=== PATIENT | female | born 1950 | race Two or more races ===

== ENCOUNTER 2018-07-14 21:22 | Inpatient (IN) | payer OTHER ==
[~2018-07-14] VITALS: Ht 160 cm; Wt 98.4 kg
[2018-07-14] MEDS ORDERED: ATROPINE SULF 1 MG/10ml SYR ONE (22:16)
[2018-07-14] MEDS ORDERED: ATROPINE SULF 1 MG/10ml SYR IV ONE ×2 (22:30→22:45)
[2018-07-14 22:32] LABS: Basophils # (auto) 0 uL; Basophils % (auto) 0.6 % (0.0-2.0); Eosinophils # (auto) 0.2 uL; Eosinophils % (auto) 2.4 % (0.0-7.0); Hematocrit 39.4 % (36.0-46.0); Hemoglobin 12.8 g/dL (12.2-16.2); Lymphocytes # (auto) 2.4 uL; Lymphocytes % (auto) 37.1 % (10.0-50.0); Mean Corpuscular Hemoglobin 31.7 pg (28.0-32.0); Mean Corpuscular Hgb Conc. 32.4 g/dL (32.0-36.0); Mean Corpuscular Volume 97.9 fL (80.0-100.0); Monocytes # (auto) 0.7 uL; Monocytes % (auto) 11.4 % (0.0-12.0); Neutrophils # (auto) 3.1 uL; Neutrophils % (auto) 48.5 % (37.0-80.0); Nucleated Red Blood Cells % 0.1 %; Platelet Count (auto) 207 10^3/uL (140-450); Red Blood Cells 4.03 10^6/uL (4.0-5.20); Red Cell Distribution Width 14.5 % (11.8-14.3); White Blood Cell 6.4 10^3/uL (4.4-10.8)
[2018-07-14 22:39] LABS: INR 1.03 (0.9-1.15); Partial Thromboplastin Time 25.8 sec (23.78-33.04)
[2018-07-14] MEDS ORDERED: SODIUM CHLORIDE 0.9% 1,000 ML IV ONE (22:45)
[2018-07-14] MEDS ORDERED: InsuLIN REG 1unit/0.01ml Soln (100units/ml) IV ONE (22:45)
[2018-07-14 22:50] LABS: Potassium 3.5 mmol/L (3.5-5.1)
[2018-07-14 22:54] LABS: Albumin 3.4 g/dL (3.4-5.0); BUN/Creatinine Ratio 29.6; Calcium 8.4 mg/dL (8.5-10.1); Magnesium 1.7 mg/dL (1.6-2.6)
[2018-07-14 23:00] LABS: Bilirubin, Total 0.4 mg/dL (0.2-1.0); Total Protein 7.1 g/dL (6.4-8.2)
[2018-07-15] VITALS (37 sets, daily range): BP systolic 86–167; BP diastolic 34–87
[2018-07-15] MEDS ORDERED: ALBUTEROL SULF 2.5 MG/0.5ML(0.5%) NEB SOLN NEB ONE (01:45)
[2018-07-15] MEDS ORDERED: ALBUTEROL SULF 2.5 MG/0.5ML(0.5%) NEB SOLN ONE (01:46)
[2018-07-15] MEDS ORDERED: DOPamine 1600MCG/ML D5W 250 ML IV ONE ×2 (03:08→09:56)
[2018-07-15] MEDS: DOPamine 1600MCG/ML D5W 250 ML IV SCH ×3 (03:30→15:16)
[2018-07-15] MEDS ORDERED: ONDANSETRON HCL 4 MG/2 ML VIAL ONE (04:10)
[2018-07-15] MEDS ORDERED: ONDANSETRON HCL 4 MG/2 ML VIAL IV ONE (04:15)
[2018-07-15 04:24] LABS: Urine Blood 1+ /uL (Negative); Urine Specific Gravity 1.026 (1.001-1.035); Urine WBC 13 /hpf (0 - 5)
[2018-07-15 04:25] LABS: Urine Bacteria FEW /hpf (None Seen); Urine Hyaline Cast FEW /lpf (0 - 2); Urine Mucus FEW (None Seen)
[2018-07-15] MEDS ORDERED: PROMETHAZINE HCL 25 MG/ML 1ML ONE (05:08)
[2018-07-15] MEDS ORDERED: PROMETHAZINE HCL 25 MG/ML 1ML IV ONE (05:15)
[2018-07-15] MEDS ORDERED: ACETAMINOPHEN 325 MG TAB PO PRN (07:00)
[2018-07-15] MEDS ORDERED: HYDROcodone-ACET 5/325MG TAB PO PRN (07:00)
[2018-07-15] MEDS ORDERED: ENOXAPARIN SOD 100 MG/1 ML SYRINGE SC ONE (07:00)
[2018-07-15] MEDS ORDERED: NITROGLYCERIN 0.4 MG SL TAB SL PRN (07:00)
[2018-07-15] MEDS ORDERED: ONDANSETRON HCL 4 MG/2 ML VIAL IV PRN (07:00)
[2018-07-15] MEDS ORDERED: MORPHINE SULFATE 4 MG/ML SYR/VIAL IV PRN (07:00)
[2018-07-15] MEDS ORDERED: LEVOTHYROXINE SODIUM 88 MCG TAB PO SCH (07:00)
[2018-07-15] MEDS ORDERED: ALBUTEROL SULF 2.5 MG/0.5ML(0.5%) NEB SOLN NEB PRN (07:00)
[2018-07-15] MEDS ORDERED: SODIUM CHLORIDE 0.9% 1,000 ML IV SCH ×4 (07:00→19:36)
[2018-07-15] MEDS ORDERED: ATORVASTATIN 20 MG TAB PO ONE (07:00)
[2018-07-15] MEDS ORDERED: DEXTROSE (50%) 50ML SYRG IV PRN ×5 (07:00→13:45)
[2018-07-15] MEDS ORDERED: ASPirin 81 mg TAB PO SCH (10:00)
[2018-07-15] MEDS ORDERED: FAMOTIDINE 20 MG TAB PO SCH (10:00)
[2018-07-15] MEDS ORDERED: METF-371 PO (10:14)
[2018-07-15] MEDS ORDERED: LEVO25TA6 PO (10:19)
[2018-07-15] MEDS ORDERED: BENA40TA7 PO (10:19)
[2018-07-15] MEDS ORDERED: PIO30T PO (10:19)
[2018-07-15] MEDS ORDERED: GLIM4TAB42 PO (10:19)
[2018-07-15] MEDS ORDERED: cefTRIAXone 1GM/50ML D5W 50 ML IV SCH (10:30)
[2018-07-15] MEDS ORDERED: MAGNESIUM SULFATE 1GM/100ML 100 ML IV PRN (10:30)
[2018-07-15] MEDS ORDERED: POTASSIUM CHL 20 Meq TABLET PO PRN (10:30)
[2018-07-15] MEDS ORDERED: InsuLIN R (HUMAN) 100 UNITS in SODIUM CHL 0.9% 99 ML IV SCH ×2 (11:58→13:36)
[2018-07-15] MEDS ORDERED: ACCU-CHEK COMFORT CURVE STRIP VI SCH ×4 (12:00→15:00)
[2018-07-15] MEDS ORDERED: InsuLIN REG 1unit/0.01ml Soln (100units/ml) SC SCH ×2 (12:00)
[2018-07-15] MEDS ORDERED: ISOPROTERENOL HCL INJECTION 1 MG in D5W 5% 250 ML IV SCH (13:36)
[2018-07-15] MEDS: SODIUM CHLORIDE 0.9% 1,000 ML IV SCH ×2 (13:36→15:36)
[2018-07-15] MEDS: InsuLIN R (HUMAN) 100 UNITS in SODIUM CHL 0.9% 99 ML IV SCH ×2 (13:40→18:52)
[2018-07-15 14:05] LABS: Basophils # (auto) 0 uL; Basophils % (auto) 0.1 % (0.0-2.0); Eosinophils # (auto) 0 uL; Hematocrit 38.2 % (36.0-46.0); Hemoglobin 12.5 g/dL (12.2-16.2); Lymphocytes # (auto) 0.4 uL; Lymphocytes % (auto) 3.6 % (10.0-50.0); Mean Corpuscular Hemoglobin 31.9 pg (28.0-32.0); Mean Corpuscular Hgb Conc. 32.7 g/dL (32.0-36.0); Mean Corpuscular Volume 97.4 fL (80.0-100.0); Monocytes # (auto) 1.1 uL; Monocytes % (auto) 9.9 % (0.0-12.0); Neutrophils # (auto) 9.5 uL; Neutrophils % (auto) 86.4 % (37.0-80.0); Platelet Count (auto) 204 10^3/uL (140-450); Red Blood Cells 3.92 10^6/uL (4.0-5.20); Red Cell Distribution Width 13.9 % (11.8-14.3)
[2018-07-15 14:38] LABS: Calcium 8.1 mg/dL (8.5-10.1); Magnesium 1.7 mg/dL (1.6-2.6); Phosphorus 4.7 mg/dL (2.5-4.90); Potassium 4.2 mmol/L (3.5-5.1)
[2018-07-15 14:55] LABS: BUN/Creatinine Ratio 24.8
[2018-07-15] MEDS: ACCU-CHEK COMFORT CURVE STRIP VI SCH ×4 (15:00→18:52)
[2018-07-15] MEDS ORDERED: ATORVASTATIN 20 MG TAB PO SCH (22:00)
== END 2018-07-15 20:15 | disposition short-term general hospital (02) | DRG 637 ==
LOC: EDBD 21:22 → ER 21:31 → OVERFLOW 21:32 → ICU WEST 07-15 08:45
PROVIDERS: ADMIT Nurse Practitioner; ATTEND Family Medicine
PROC: 02H633Z Insertion of Infusion Device into Right Atrium, Percutaneous Approach (ICD-10-PCS; principal; 2018-07-15)
PROC: B244ZZZ Ultrasonography of Right Heart (ICD-10-PCS; 2018-07-15)
DX: E11.65 Type 2 diabetes mellitus with hyperglycemia (principal); I50.43 Acute on chronic combined systolic (congestive) and diastolic (congestive) heart failure; N39.0 Urinary tract infection, site not specified; J98.11 Atelectasis; I44.2 Atrioventricular block, complete; I49.8 Other specified cardiac arrhythmias; R42 Dizziness and giddiness; R31.9 Hematuria, unspecified; F03.90 Unspecified dementia, unspecified severity, without behavioral disturbance, psychotic disturbance, mood disturbance, and anxiety; I11.0 Hypertensive heart disease with heart failure; I25.10 Atherosclerotic heart disease of native coronary artery without angina pectoris; Z82.3 Family history of stroke; Z86.73 Personal history of transient ischemic attack (TIA), and cerebral infarction without residual deficits; Z79.84 Long term (current) use of oral hypoglycemic drugs; Z83.3 Family history of diabetes mellitus
CPT/HCPCS: 36415; 36600; 70450; 71045; 72125; 76942; 80048; 80053; 81001; 82010; 82805; 82962; 83036; 83735; 83880; 83930; 84100; 84443; 84484; 85025; 85610; 85730; 87081; 93005; 93306; 94640; 96361; 96365; 96375; G0378; J0696; J1815; J2405; J7060